=== PATIENT | male | born 1950 | race African-American/Black ===

== ENCOUNTER 2017-12-24 05:21 | Day surgery (SDC) | payer OTHER, MEDICARE ==
[~2017-12-24] VITALS: Ht 185.4 cm; Wt 101.6 kg
--- NOTE | ~2017-12-24 | O ---
[facility] [place] [address] OPERATIVE REPORT Name: RYLEY HODGE Room #: DEP [facility] [place].#: [id number] Admission: 12/24/17 Attend Phys: Ryley Menezes MD Discharge: 12/24/17 Date of : 54 Report #: [id number] THIS REPORT FOR: //name// CC: Juan C Menezes DATE OF SERVICE: 12/24/2017 DISPATCH COORDINATOR: None. PREOPERATIVE DIAGNOSIS: Unilateral left upper lid ptosis. POSTOPERATIVE DIAGNOSIS: Unilateral left upper lid ptosis. OPERATION PERFORMED: Unilateral left upper lid ptosis repair. ANESTHESIA: Local anesthesia with IV sedation. COMPLICATIONS: None. INDICATIONS FOR SURGERY: This patient has left upper lid ptosis with superior visual field loss. Visual field testing demonstrates dense superior visual defects. Retesting with the upper lid elevated shows an improvement in visual field loss of over 30% and in excess of 12 degrees. The current procedure is undertaken in order to improve the patient's visual function. Informed consent was obtained to include but not limited to the potential risks for bleeding, scarring, infection, loss of vision, failure to improve the problem, need for further surgery and need for adjustment of lid height. DESCRIPTION OF PROCEDURE: The patient was taken to the operating room, where a left upper lid crease was drawn with a skin marking pen. The incision was then made with Arnulfo scissors and dissected down to the orbital septum. Hemostasis was achieved with a monopolar cautery as it was throughout the case. The orbital septum was then entered and the preaponeurotic fat identified. The levator aponeurosis was then disinserted from the anterior surface of the tarsal plate and dissected free in the avascular Wheeler's muscle plane. The aponeurosis was then advanced onto the anterior surface of the tarsal plate and reattached with mattress double-arm 6-0 Novafil sutures, adjusting for height and contour. The redundant aponeurosis was then amputated. The upper lid crease was then reformed with interrupted 6-0 chromic sutures. The skin was closed with interrupted 6-0 plain gut suture. The wound was then cleaned and dressed with ophthalmic antibiotic ointment. [address] [address] OPERATIVE REPORT Name: RYLEY HODGE Room #: DEP [facility]..#: [id number] Admission: 12/24/17 Attend Phys: Ryley Menezes MD Discharge: 12/24/17 Date of : 54 Report #: [id number] The patient was then transported to the recovery area, having tolerated the procedure well with no anesthesia or operative complications being noted. <ELECTRONICALLY SIGNED> By: Ryley Menezes MD 12/28/17 [id number] [id number] Ryley Menezes MD /nt
[~2017-12-24 05:21] MED LIST: COSOPT OCUMETER10 M1 OPHTHALMIC; LUMIGAN2.5 M1 OPHTHALMIC; XALATAN2.5 ML OPHTHALMIC
[2017-12-24 06:52] VITALS: BP 119/76
== END 2017-12-24 08:35 | disposition home or self-care (01) ==
LOC: OR 05:21 → TBA 05:21 → OR 08:35
DX: H02.402 Unspecified ptosis of left eyelid (principal); H53.452 Other localized visual field defect, left eye; H40.9 Unspecified glaucoma; Z98.890 Other specified postprocedural states
CPT/HCPCS: 50010; 50101; 50386; 50398; 51636; 56528; 56531; 62110; 62850; 70005